=== PATIENT | female | born 1995 | race African-American/Black ===

== ENCOUNTER 2017-10-05 09:45 | Emergency (ER) | payer OTHER ==
[~2017-10-05] VITALS: Ht 162.6 cm; Wt 54.0 kg
--- NOTE | ~2017-10-05 | EKG ---
[place] [address] [employer] [facility] [place] [address] ELECTROCARDIOGRAM REPORT Name: LUIS ALFREDO EID [facility] [id number] Admission: 10/05/17 Attend Phys: Discharge: 10/05/17 Date of : [birth year] Report #: [id number] THIS REPORT FOR: //name// [facility] ED Test Date: 2017-10-05 Test Time: 09:52:29 Pat Name[facility] Department: Room: Gender: F [employer] Supervisor: MICHELLE : 1995 Requested By: Marisela Lawrence Order Number: [id number] MD: Jevon Stallings Measurements Intervals Lillian Rate: 78 P: 62 MI: 139 QRS: 22 QRSD: 84 T: 24 QT: 358 QTc: 408 Interpretive Statements Sinus rhythm Normal tracing Compared to ECG 07/12/2015 12:44:30 No significant change was found Electronically Signed On 10-06-2017 9:06:51 CDT by Jevon Stallings [email or web address] <ELECTRONICALLY SIGNED> By: Jevon Stallings MD, [facility] 10/06/1706 [id number] Jevon Stallings MD, FACC /EPI
[~2017-10-05 09:45] MED LIST: BACTRIM DS TAB1 EACH PO; IRON325 PO; LORTABELXR PO; NOHOMEMEDICATIONS; PENICILLIN VK500 M1 PO; PYRIDIUM200 MG PO; TRINATE TABLET1 TAB PO
[2017-10-05 10:20] LABS: HEMATOCRIT 39.8 % (37.0-47.0); HEMOGLOBIN 13.4 gm/dL (12.0-15.0); MCH 29.3 pg (26.0-34.0); MCHC 33.6 g/dL (28.0-37.0); MCV 87.3 fL (80.0-100.0); RBC 4.56 mil/uL (4.20-5.00); RDW 13.8 % (10.5-14.5); WBC 3.7 thou/uL (4.0-11.0)
[2017-10-05 10:27] LABS: ANION GAP 8 mmol/L (7-16); BUN 10 mg/dL (7-18); CALCIUM 9.1 mg/dL (8.5-10.1); CHLORIDE 106 mmol/L (98-107); CO2 25 mmol/L (21-32); GLUCOSE 94 mg/dL (74-106); POTASSIUM 3.8 mmol/L (3.5-5.1); SODIUM 139 mmol/L (136-145)
[2017-10-05 10:37] LABS: TROPONIN-I <0.06 ng/mL (<0.06)
[2017-10-05 11:10] VITALS: BP 112/82
[2017-10-05] MEDS ORDERED: CARAFATE 1 GM TA1 G1 PO (11:17)
[2017-10-05] MEDS ORDERED: TRAMADOL 50 MG50 MG PO (11:17)
== END 2017-10-05 11:27 | disposition home or self-care (01) ==
LOC: ER 09:45
PROVIDERS: Physician Assistant
DX: R07.89 Other chest pain (principal); K29.70 Gastritis, unspecified, without bleeding

== ENCOUNTER 2018-04-23 15:59 | Emergency (ER) | payer OTHER ==
[~2018-04-23] VITALS: Ht 162.6 cm; Wt 57.6 kg
[~2018-04-23 15:59] MED LIST changes: +CARAFATE 1 GM TA1 G1 PO; +TRAMADOL 50 MG50 MG PO
[2018-04-23 16:49] VITALS: BP 119/75
[2018-04-23] MEDS ORDERED: PENICILLIN V P500 MG PO (16:54)
[2018-04-23] MEDS ORDERED: MOBIC7.5 MG PO (16:55)
== END 2018-04-23 17:00 | disposition home or self-care (01) ==
LOC: ER 15:59
DX: K08.89 Other specified disorders of teeth and supporting structures (principal); R51 Headache

== ENCOUNTER 2018-09-16 18:23 | Emergency (ER) | payer OTHER ==
[~2018-09-16] VITALS: Ht 162.6 cm; Wt 59.0 kg
[~2018-09-16 18:23] MED LIST changes: +MOBIC7.5 MG PO; +PENICILLIN V P500 MG PO
[2018-09-16] MEDS ORDERED: ZYRTEC10 M5 PO (19:01)
[2018-09-16] MEDS ORDERED: TESSALON PERLE100 MG PO (19:01)
[2018-09-16] MEDS ORDERED: VENTOLIN HFA 1818 GM INH (19:01)
[2018-09-16] MEDS ORDERED: MEDROL4 M1 PO (19:01)
== END 2018-09-16 19:23 | disposition home or self-care (01) ==
LOC: ER 18:23
DX: J34.89 Other specified disorders of nose and nasal sinuses (principal); R05 Cough

== ENCOUNTER 2018-10-29 14:01 | Emergency (ER) | payer OTHER ==
[~2018-10-29] VITALS: Ht 162.6 cm; Wt 59.0 kg
[~2018-10-29 14:01] MED LIST changes: +MEDROL4 M1 PO; +TESSALON PERLE100 MG PO; +VENTOLIN HFA 1818 GM INH; +ZYRTEC10 M5 PO
[2018-10-29 14:02] VITALS: BP 108/65
[2018-10-29 14:29] LABS: URINE BILIRUBIN NEGATIVE (Negative); URINE BLOOD NEGATIVE (Negative); URINE CLARITY CLEAR; URINE COLOR YELLOW; URINE GLUCOSE-RANDOM* NEGATIVE (Negative); URINE KETONES NEGATIVE (Negative); URINE LEUKOCYTES-REFLEX NEGATIVE (Negative); URINE NITRITE-REFLEX NEGATIVE (Negative); URINE PROTEIN (DIPSTICK) NEGATIVE (Negative); URINE SPECIFIC GRAVITY 1.025 (1.005-1.035); URINE UROBILINOGEN 0.2 E.U./dl (0.2-1.0)
== END 2018-10-29 14:57 | disposition home or self-care (01) ==
LOC: ER 14:01
PROVIDERS: Physician Assistant
DX: N89.8 Other specified noninflammatory disorders of vagina (principal)

== ENCOUNTER → 2019-12-07 | Emergency (ER) | payer OTHER ==
[~2019-12-07] VITALS: Ht 162.6 cm; Wt 62.6 kg
[~2019-12-07] MED LIST changes: +MELOXICAM15 MG PO
[2019-12-07 17:00] VITALS: BP 99/78
== END ==
LOC: ER 15:23
DX: M25.561 Pain in right knee (principal)